=== PATIENT | female | born 1990 | race Two or more races ===

== ENCOUNTER 2020-01-07 06:55 | Inpatient (IN) | payer OTHER ==
[2020-01-07] MEDS ORDERED: DINOPROSTONE 10 MG VAGINAL SUPPOSITORY VG ONE (08:00)
[2020-01-07] MEDS ORDERED: BUTORPHANOL TARTRATE 1 MG/ML VIAL IVPB ONE (08:06)
[2020-01-07] MEDS ORDERED: PROMETHAZINE HCL 25 MG/1 ML VIAL IVPUSH ONE (08:06)
[2020-01-07] MEDS ORDERED: SODIUM PHOSPHATE/NA BIPHOS 133 ML ENEMA NR ONE (08:09)
[2020-01-07 08:17] VITALS: BMI 38.9
[2020-01-07 09:44] LABS: BASO % 0.3 % (0-2.0); EOS % 0.7 % (0-4.5); HEMOGLOBIN 10.9 GM/dL (10.7-15.3); LYMPH % 14.3 % (8-40); MCH 30.6 pg (25.7-33.7); MCHC 34.1 g/dl (32.0-36.0); MEAN CELL VOLUME 89.6 fl (80-96); MEAN PLT VOLUME 8.6 fl (7.5-11.1); MONO % 7.5 % (3.8-10.2); NEUT % 77.2 % (42.8-82.8); PLATELET COUNT 236 K/MM3 (134-434); RBC 3.58 M/mm3 (3.60-5.2); WHITE BLOOD COUNT 10.7 K/mm3 (4.0-10.0)
[2020-01-07 10:04] LABS: BLOOD UREA NITROGEN 12.8 mg/dL (7-18); CALCIUM 9.3 mg/dL (8.5-10.1); CREATININE 0.5 mg/dL (0.55-1.3); POTASSIUM 4.3 mmol/L (3.5-5.1)
[2020-01-07 11:28] LABS: INR 0.95 (0.83-1.09); PROTHROMBIN TIME (PATIENT) 11.7 SEC (9.7-13.0)
--- NOTE | 2020-01-07 12:19 | HP ---
Past Medical History - Primary Care Physician PCP:: Radha Hughes - Admission Chief Complaint: 29 yrs , 40.5/7 WKS BY DATES & US requests for Induction of labor History of Present Illness: [facility] in [place] , transferred to [address] [place] [address] 01/04/20 at 40.2 wka gestation US on 01/04/20 : report : sliup. 36.5 wks m reginaldo 11.9, bpp8/8 NST cat-1 . Ant placenta chart was reviewed . 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 Weeks Gestation by Dates: 40.5 ...EDC by Dates: 01/02/20 ...EDC by Sono: 01/02/20 Infectious Disease: No: AIDS, HIV, STD's Psych: No: Addictions, Anxiety, Bipolar, Depression, Panic, Psychosis, Schizo phrenia, Other Endocrine: No: Diabetes Mellitus, Hyperthyroidism, Hypothyroidism - Past Surgical History Past Surgical History: Yes: None Hx Myomectomy: No Hx Transabdominal Cerclage: No - Smoking History Smoking history: Never smoked Have you smoked in the past 12 months: No - Alcohol/Substance Use Hx Alcohol Use: No History of Substance Use: reports: None - Social History History of Recent Travel: No Home Medications - Allergies Allergies/Adverse Reactions: Allergies Allergy/AdvReac Type Severity Reaction Status Date / Time No Known Allergies Allergy Verified 01/04/20 11:24 - Home Medications Home Medications: Ambulatory Orders Vit No.124/Iron/Folic [ Vitamin Tablet] 1 tab PO DAILY 01/07/20 Physical Exam - Maternity Vital Signs: Vital Signs Temperature 98.5 F 01/07/20 11:00 Pulse Rate 102 H 01/07/20 11:00 Respiratory Rate 18 01/07/20 11:00 Blood Pressure 130/80 01/07/20 11:00 O2 Sat by Pulse Oximetry (%) 98 01/07/20 11:00 Selected Entries 01/07/20 01/07/20 06:55 08:00 Temperature 98.1 F Pulse Rate 110 H Blood Pressure 124/84 125/75 Weight 206 lb Constitutional: Yes: Well Nourished, No Distress Eyes: Yes: WNL HENT: Yes: WNL Neck: Yes: WNL Cardiovascular: Yes: WNL Lungs: Clear to auscultation Breast(s): Yes: WNL - Abdominal Exam/OB Fundal Height: 38 Number of Fetuses: Single Presentation: Vertex Contractions: No Monitor Mode: External Heart Rate (range): 150-160 Heart Rate Location: [facility] Category: I Accelerations: Non-Uniform Decelerations: None - Vaginal Exam/OB Vaginal Bleeding: No Dilatation (cm): close Effacement (%): 30 Presentation: Vertex/Position Station: -3 - Physical Exam Musculoskeletal: Yes: WNL Extremities: Yes: WNL. No: Calf Tenderness Edema: Yes Edema: LLE: 1+, RLE: 1+ Integumentary: Yes: Tattoos Deep Tendon Reflex Grade: Normal +2 ...Motor Strength: WNL Psychiatric: Yes: WNL, Alert, Oriented - Labs Lab Results: CBC, BMP 01/07/20 09:20 01/07/20 09:20 Problem List - Problems (1) Post term over 40 weeks Code(s): O48.0 - POST-TERM (2) Encounter for elective induction of labor Code(s): Z34.90 - ENCNTR FOR SUPRVSN OF NORMAL , UNSP, UNSP TRIMESTER Assessment/Plan 29 yrs , 40.5 wka ltransferred at post term stage GBS neg admitted for induction of labor Cervidil inserted t 8.00AM Plan Trial of vaginal delivery pain management : stdol +phenrgan & or epidural
--- NOTE | 2020-01-07 17:38 | PN ---
Progress Note (short form) - Note Progress Note: 4.30 PM SROM . clear while pt in the bathroom. c/o cramping , mild, mainly in her back . FM active 4.45 PM Pelvic exam : NItrazine Pos. Gross leaking , wet chucks. Cx FT/50%/MR/Vx-3 . FHR 140-150 cat-1 . NO uc noted sometomes ut irritablity . cervidil in vagina Selected Entries 01/07/20 01/07/20 16:00 17:00 Temperature 98.1 F Temperature Oral Source Pulse Rate 100 H 113 H Blood Pressure 132/80 143/86 Plan watch for BP continue trial of labor Laboratory Tests 01/04/20 01/07/20 01/07/20 10:40 09:20 09:20 Syphilis Serology Non-reactive COVID-19 (ELIU) Not detected HIV Ag/Ab Combo Qual Negative Problem List - Problems (1) Post term over 40 weeks Code(s): O48.0 - POST-TERM (2) Encounter for elective induction of labor Code(s): Z34.90 - ENCNTR FOR SUPRVSN OF NORMAL , UNSP, UNSP TRIMESTER
--- NOTE | 2020-01-07 18:33 | PN ---
Progress Note (short form) - Note Progress Note: cervidil expelled spontaneously 4.30 PM 01/07/20 fleets enema & shower she will take . since cx is only FT/ 50 %/ MR vx-3 I will give po Cytotec Selected Entries 01/07/20 01/07/20 19:00 20:00 Temperature 98.4 F Pulse Rate 109 H Blood Pressure 137/90 134/83 01/07/20 7.30 PM 1st po cyotec 25 mcg was given Problem List - Problems (1) Post term over 40 weeks Code(s): O48.0 - POST-TERM (2) Encounter for elective induction of labor Code(s): Z34.90 - ENCNTR FOR SUPRVSN OF NORMAL , UNSP, UNSP TRIMESTER
[2020-01-07] MEDS: MISOPROSTOL 200 MCG TABLET PO SCH (19:26)
[2020-01-07] MEDS: DEXTROSE 5%-LACTATED RINGERS 1,000 ML IV SCH (20:21)
[2020-01-07] MEDS ORDERED: PROMETHAZINE HCL 25 MG/1 ML VIAL ONE (21:49)
[2020-01-07] MEDS ORDERED: BUTORPHANOL TARTRATE 2 MG/ML VIAL ONE (21:49)
[2020-01-07] MEDS ORDERED: OXYTOCIN 30 UNITS in 0.9% NS 30 UNIT/500 ML INFUS.BAG IVPB SCH (23:00)
[2020-01-07] MEDS ORDERED: OXYTOCIN 30 UNITS in 0.9% NS 30 UNIT/500 ML INFUS.BAG IVPB ONE (23:41)
[2020-01-08] MEDS ORDERED: PCA PUMP NR ONE ×2 (00:26→12:28)
[2020-01-08] MEDS ORDERED: FENTANYL/BUPIVACAINE/NS/PF - PCEA - 50 ML DISP.SYRIN EP ONE ×2 (00:26→05:16)
[2020-01-08] MEDS ORDERED: NALOXONE HCL 0.4 MG/ML VIAL IVPUSH PRN (01:20)
[2020-01-08] MEDS ORDERED: FENTANYL/BUPIVACAINE/NS/PF - PCEA - 50 ML DISP.SYRIN EP SCH (01:30)
--- NOTE | 2020-01-08 05:02 | PN ---
Progress Note (short form) - Note Progress Note: 01/07/20 10.00PM stadol 2mg + phnergan 25 mg was given. 11.30 PM Pitocin Augmentation started 01/08/20 01.30AM epidural was given 04.40AM Pelvic 6cm/90%/vx-2,caput FHR 140-150, cat-1 periodically cat-11 , due to variable decel , turning position back to cat-1 UC -2-6 min irregular, Pitocin was slowed down due to varibell decel Selected Entries 01/07/20 01/08/20 01/08/20 21:00 03:00 03:15 Temperature 97.9 F Pulse Rate 101 H Blood Pressure 131/62 01/08/20 01/08/20 03:30 04:00 Temperature 97.8 F Pulse Rate 86 Blood Pressure 109/57 L plan : continue trial of labor titrate pitocin Problem List - Problems (1) Post term over 40 weeks Code(s): O48.0 - POST-TERM (2) Encounter for elective induction of labor Code(s): Z34.90 - ENCNTR FOR SUPRVSN OF NORMAL , UNSP, UNSP TRIMESTER
[2020-01-08] MEDS ORDERED: AMPICILLIN - 2 GM in SODIUM CHLORIDE 100 ML IVPB ONE (07:27)
[2020-01-08] MEDS ORDERED: AMPICILLIN SODIUM 2 GM VIAL ONE (07:28)
--- NOTE | 2020-01-08 07:35 | PN ---
Progress Note (short form) - Note Progress Note: pelvic Ex :7.20 AM : Cx fully dilated, 100 % vx+2 station, caput shr 150-160 cat-1 , UC 3-4-5 irregular Selected Entries 01/08/20 01/08/20 01/08/20 06:15 06:30 06:45 Temperature Pulse Rate 104 H 101 H 104 H Blood Pressure 129/62 126/80 130/76 01/08/20 07:00 Temperature 98.8 F Pulse Rate Blood Pressure 7.20 pt's pulse 125 bpm , after knowledge of full dilatation Pulse 148 , repeat Temp : 99 . pt is 17 hrs after srom plan ampicillin 2gmivpb stat await natural descent before encouraging to push Problem List - Problems (1) Post term over 40 weeks Code(s): O48.0 - POST-TERM (2) Encounter for elective induction of labor Code(s): Z34.90 - ENCNTR FOR SUPRVSN OF NORMAL , UNSP, UNSP TRIMESTER
[2020-01-08] MEDS ORDERED: OXYTOCIN 20 UNITS in 0.9% NS 20 UNIT/1,000 ML INFUS.BAG IV ONE (07:50)
[2020-01-08] MEDS ORDERED: LIDOCAINE HCL 1% PRESERVATIVE FREE - 30ML VIAL ONE (07:52)
[2020-01-08] MEDS ORDERED: BISACODYL 10 MG SUPP.RECT RC PRN (09:21)
[2020-01-08] MEDS ORDERED: METHYLERGONOVINE MALEATE 0.2 MG/1 ML AMP IM PRN (09:21)
[2020-01-08] MEDS ORDERED: BENZOCAINE 20% 57 GM BOTTLE TP PRN (09:21)
[2020-01-08] MEDS ORDERED: BENZOCAINE 28 GM HEMORRHOIDAL OINTMENT TP PRN (09:21)
[2020-01-08] MEDS ORDERED: WITCH HAZEL 50% (TUCKS) 40 PAD/JAR PAD TP PRN (09:21)
[2020-01-08] MEDS ORDERED: oxyCODONE HCL 5 MG TABLET PO PRN (09:21)
[2020-01-08 09:26] LABS: CORD BASE EXCESS -4.7 mmol/L (0-2); CORD HCO3 27.3 mmHg (20-29); CORD PCO2 83.9 mmHg (30-78); CORD pH 7.13 (7.14-7.44)
[2020-01-08 09:28] LABS: CORD BASE EXCESS -4.7 mmol/L (0-2); CORD PCO2 46.1 mmHg (30-78); CORD pH 7.296 (7.14-7.44)
[2020-01-08] MEDS ORDERED: OXYTOCIN 20 UNITS in 0.9% NS 20 UNIT/1,000 ML INFUS.BAG IV SCH (09:30)
[2020-01-08 09:32] LABS: EPI CELLS 23 /uL (0-25.1); HYALINE CASTS 2 /uL (0-3.1); URINE APPEARANCE CLEAR; URINE BACTERIA 40 /uL (0-1359); URINE BILIRUBIN NEGATIVE (NEGATIVE); URINE COLOR YELLOW; URINE GLUCOSE (UA) NEGATIVE (NEGATIVE); URINE KETONE NEGATIVE (NEGATIVE); URINE LEUK ESTERASE NEGATIVE (NEGATIVE); URINE NITRITE NEGATIVE (NEGATIVE); URINE PROTEIN NEGATIVE (NEGATIVE); URINE RBC 137 /uL (0-23.9); URINE UROBILINOGEN 0.2 mg/dL (0.2-1.0); URINE WBC 18 /uL (0-25.8)
--- NOTE | 2020-01-08 09:47 | PN ---
Delivery - Delivery Vaginal Delivery: No Problems, Spontaneous (baby delievered vx, raffaele position , cord around neckx1 untangled befire delivery of shuolder ,cord trivascular, cord segment given for cord blood gas , cord blood collected .median epi was given , which was sutured in layers with chr catgut #2/0. 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 Stadol + phenrgan followed by epidural was given for labor analgesia Pt extremly anxious & nervous during labor maternal tachycardia was noted , pt afebrile during labor course , [id number]. Since SROM 18 hrs , I want to r/o subclinical infection hence uc/s & uterine culture sent 2gm IV ampicillin x1 dose was given at 7.30 AM I will continue 1 gm Ampicillin ivpb x2 doses . post pulse 125-137 . I request psyche consult
[2020-01-08] MEDS ORDERED: IBUPROFEN 600 MG TABLET (FP) PO ONE (10:11)
[2020-01-08] MEDS ORDERED: ACETAMINOPHEN 325 MG TABLET (FP) ONE (10:12)
[2020-01-08] MEDS: IBUPROFEN 600 MG TABLET (FP) PO PRN ×2 (10:15→20:15)
[2020-01-08] MEDS: ACETAMINOPHEN 325 MG TABLET (FP) PO PRN ×2 (10:15→20:15)
[2020-01-08] MEDS ORDERED: AMPICILLIN - 1 GM in SODIUM CHLORIDE 100 ML IVPB SCH ×2 (11:28→12:28)
[2020-01-08] MEDS ORDERED: AMPICILLIN SODIUM 1 GM VIAL ONE ×2 (12:56→16:31)
[2020-01-08] MEDS ORDERED: SODIUM CHLORIDE 100 ML IVPB ONE ×2 (12:56→16:31)
[2020-01-08] MEDS: PRENATAL VITAMINS W/ FOLIC ACID TABLET (FP) PO SCH (12:59)
[2020-01-08] MEDS: AMPICILLIN - 1 GM in SODIUM CHLORIDE 100 ML IVPB SCH ×2 (12:59→16:40)
[2020-01-08] MEDS: MISOPROSTOL 200 MCG TABLET PO SCH (13:13)
[2020-01-08] MEDS: DEXTROSE 5%-LACTATED RINGERS 1,000 ML IV SCH (13:14)
--- NOTE | 2020-01-08 13:42 | CON.PSY ---
Psychiatry Consult Chief Complaint: i feel nervous some times.. I dont have any Psych issues.. [patient is smiling and feeding the baby. apperas very relaxed and happy. Denies any Psych illness or History. - Previous Psychiatric Treatment Outpatient: None Inpatient: None - Previous Substance Abuse Treatment Outpatient: None Inpatient: None - Current Medications Current Medications: Active Medications Acetaminophen (Tylenol -) 650 mg PO Q3H PRN PRN Reason: PAIN LEVEL 1-5 Last Admin: 01/08/20 10:15 Dose: 650 mg Documented by: Benzocaine (Americaine 20% [place] -) 1 spray TP PRN PRN PRN Reason: PAIN Last Admin: 01/08/20 12:59 Dose: 1 applic Documented by: Benzocaine (Americaine Ointment -) 1 applic TP PRN PRN PRN Reason: PAIN Bisacodyl (Dulcolax Suppository -) 10 mg RC PRN PRN PRN Reason: CONSTIPATION Ferrous Sulfate (Feosol -) 325 mg PO BIDWM [facility] Oxytocin/Sodium Chloride (Normal Saline+20 Units Oxytocin -) 20 unit in 1,000 mls @ 125 mls/hr IV ASDIR [facility] Last Admin: 01/08/20 08:38 Dose: 125 mls/hr Documented by: Ampicillin Sodium 1 gm/ Sodium (Chloride) 100 mls @ 200 mls/hr IVPB Q4H [facility] Stop: 01/08/20 17:14 Last Admin: 01/08/20 12:59 Dose: 200 mls/hr Documented by: Ibuprofen (Motrin -) 600 mg PO Q4H PRN PRN Reason: PAIN LEVEL 6-10 Last Admin: 01/08/20 10:15 Dose: 600 mg Documented by: Methylergonovine Maleate (Methergine Injection -) 0.2 mg IM Q4H PRN PRN Reason: EXCESSIVE BLEEDING (L&D) Oxycodone HCl (Roxicodone -) 5 mg PO Q6H PRN PRN Reason: PAIN LEVEL 7 - 10 Multivit/Folic Acid/Iron ( Vitamins (Sjr) -) 1 tab PO DAILY [facility] Last Admin: 01/08/20 12:59 Dose: 1 tab Documented by: Senna/Docusate Sodium (Pericolace -) 2 tablet PO HS PRN PRN Reason: CONSTIPATION Witch Peggy/Glycerin (Tucks Pads -) 1 pad TP PRN PRN PRN Reason: PAIN Last Admin: 01/08/20 12:59 Dose: 1 pad Documented by: - Allergies Allergies: Allergies Allergy/AdvReac Type Severity Reaction Status Date / Time No Known Allergies Allergy Verified 01/04/20 11:24 - Current Living Status Usual Living Arrangement: With Spouse - Current Mental Status Evaluation Appearance: Well Groomed Attitude: Cooperative - Affect Affect: Full Range Appropriateness: Appropriate to Content - Mood Mood: Euthymic - Speech/Language Expressive: Coherent - Psychomotor Activity Psychomotor Activity: Normal - Thought Process Thought Process: Intact - Thought Content Hallucinations: Present Delusions: Present - Self Perception Self Perception: No Impairment - Cognition Attention: Alert Orientation: Time Memory, Immediate Recall: Intact Memory, Short Term: 3/3 Memory, Remote with Promptin/3 - Concentration Serial Sevens Intact: Yes Simple Calculations Intact: Yes - Abstraction Proverb Interpretation: Intact Judgement: Intact - Insight Insight: Intact - Impulse Control Impulse Control: Good Control - Suicidal Ideation Suicidal Ideation: No - Homicidal Ideation Homicidal Ideation: No Assessment/Plan 1) No9 Psych meds needed. No psych illness./
[2020-01-08] MEDS: FERROUS SO4 325 MG TABLET (FP) PO SCH (16:40)
--- NOTE | 2020-01-09 07:39 | DS ---
Physical Exam-ELECTRICAL MACHINIST Vital Signs: Vital Signs Temperature 97.6 F 01/09/20 06:00 Pulse Rate 108 H 01/09/20 06:00 Respiratory Rate 18 01/09/20 06:00 Blood Pressure 122/82 01/09/20 06:00 O2 Sat by Pulse Oximetry (%) 100 01/08/20 11:17 Constitutional: Yes: Well Nourished, Obese, Other (no complains) Eyes: Yes: WNL HENT: Yes: WNL Neck: Yes: WNL Cardiovascular: Yes: WNL Respiratory: Yes: WNL Gastrointestinal: Yes: WNL Renal/: Yes: WNL ....Post : Yes: Uterus firm, Uterus non-tender, Moderate lochia rubra (epi wound healing) Breast(s): Yes: WNL (BF , beast not engorged) Musculoskeletal: Yes: WNL Extremities: Yes: WNL. No: Calf Tenderness Edema: LLE: 1+, RLE: 1+ Integumentary: Yes: Tattoos Neurological: Yes: WNL, Alert, Oriented ...Motor Strength: WNL Psychiatric: Yes: WNL, Alert, Oriented Labs: CBC, BMP 01/07/20 09:20 01/07/20 09:20 Delivery - Delivery Vaginal Delivery: No Problems, Spontaneous (baby delievered vx, raffaele position , cord around neckx1 untangled befire delivery of shuolder ,cord trivascular, cord segment given for cord blood gas , cord blood collected .median epi was given , which was sutured in layers with chr catgut #2/0. 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 Stadol + phenrgan followed by epidural was given for labor analgesia Pt extremly anxious & nervous during labor maternal tachycardia was noted , pt afebrile during labor course , Tmax99. Since SROM 18 hrs , I want to r/o subclinical infection hence uc/s & uterine culture sent 2gm IV ampicillin x1 dose was given at 7.30 AM I will continue 1 gm Ampicillin ivpb x2 doses . post pulse 125-137 . I request psyche consult psyche consult noted, no med necessary pt counselled for anemia & pp depression she requests discharge today Discharge today Discharge Summary Problems reviewed: Yes Reason For Visit: INDUCTION OF LABOR Current Active Problems Encounter for elective induction of labor (Acute) Normal spontaneous vaginal delivery (Acute) Post term over 40 weeks (Acute) Condition: Stable - Instructions Diet, Activity, Other Instructions: Discharge Instructions * Out of Bed * * Regular Diet * Sheron Care * Avoid sex for 6 weeks * rtc 3 weeks .call [phone] for appt If you experience excessive bleeding or fever over 101 degrees, call doctor, the clinic or go to the Emergency Room. Referrals: Radha Hughes MD [Staff Physician] - Disposition: HOME - Home Medications Comprehensive Discharge Medication List: Ambulatory Orders Vit No.124/Iron/Folic [ Vitamin Tablet] 1 tab PO DAILY 01/07/20 Acetaminophen [Tylenol .Regular Strength -] 650 mg PO Q3H PRN tablet 01/09/20 Benzocaine [Americaine 20% [place] -] 1 spray TP PRN PRN bottle 01/09/20 Ferrous Sulfate [Feosol] 325 mg PO DAILY #30 tab 01/09/20 Ibuprofen [Motrin -] 600 mg PO Q4H PRN #20 tablet 01/09/20 Vitamins (Sjr) - 1 tab PO DAILY tablet 01/09/20 Sennosides/Docusate Sodium [Pericolace -] 2 tablet PO HS PRN #30 tablet 01/09/20 Witch Peggy 50% (Tucks) [Tucks Pads -] 1 pad TP PRN PRN pad 01/09/20
[2020-01-09 10:05] LABS: BASO % 0.3 % (0-2.0); EOS % 1.6 % (0-4.5); HEMATOCRIT 28.7 % (32.4-45.2); HEMOGLOBIN 9.7 GM/dL (10.7-15.3); LYMPH % 13.4 % (8-40); MCH 30.4 pg (25.7-33.7); MCHC 33.8 g/dl (32.0-36.0); MEAN PLT VOLUME 8.8 fl (7.5-11.1); MONO % 6.1 % (3.8-10.2); NEUT % 78.6 % (42.8-82.8); PLATELET COUNT 220 K/MM3 (134-434); RBC 3.19 M/mm3 (3.60-5.2); RDW 13.3 % (11.6-15.6); WHITE BLOOD COUNT 14.5 K/mm3 (4.0-10.0)
[2020-01-09] MEDS: FERROUS SO4 325 MG TABLET (FP) PO SCH (10:07)
[2020-01-09] MEDS: PRENATAL VITAMINS W/ FOLIC ACID TABLET (FP) PO SCH (10:07)
[2020-01-09 10:09] VITALS: BP 115/70; PULSE 112; TEMP 98
[2020-01-09] MEDS ORDERED: SENNOSIDES/DOCUSATE COMBO (SENNA PLUS) TABLET (UD) PO PRN (22:00)
[2020-01-10 09:12] LABS: POC NITRAZINE POS
== END 2020-01-09 15:35 | disposition home or self-care (01) | DRG 560 ==
LOC: JLDR 06:55 → J3W 01-08 10:40
PROVIDERS: ADMIT Obstetrics & Gynecology; ATTEND Obstetrics & Gynecology
PROC: 0W8NXZZ Division of Female Perineum, External Approach (ICD-10-PCS; 2020-01-07)
PROC: 10E0XZZ Delivery of Products of Conception, External Approach (ICD-10-PCS; principal; 2020-01-08)
PROC: 3E0P7VZ Introduction of Hormone into Female Reproductive, Via Natural or Artificial Opening (ICD-10-PCS; 2020-01-08)
DX: O48.0 Post-term pregnancy (principal); O42.02 Full-term premature rupture of membranes, onset of labor within 24 hours of rupture; O69.81X0 Labor and delivery complicated by cord around neck, without compression, not applicable or unspecified; Z3A.40 40 weeks gestation of pregnancy; Z37.0 Single live birth
CPT/HCPCS: 36415; 36600; 59409; 80048; 81003; 82803; 83986-QW; 85025; 85610; 85730; 86780; 86850; 86900; 86901; 87070; 87086; 87205; 87389